=== PATIENT | male | born 1950 | race Caucasian/White ===

== ENCOUNTER 2023-12-29 12:51 | Outpatient (CLI) | payer MEDICARE, OTHER, SELFPAY ==
--- NOTE | ~2023-12-29 | MMUS_ITS ---
EXAMINATION: MM diagnostic ame RT w angel, US breast RT limited HISTORY: Right breast pain TECHNIQUE: Additional 3-D tomosynthesis images of ] were performed and synthetic 2-D images were gene rated. Comparison left MLO view performed. CAD analysis was submitted and interpreted. High resolutio n Limited right breast ultrasound was performed. COMPARISON: None BREAST PARENCHYMAL COMPOSITION: Not dense: There are scattered areas of fibroglandular density. FINDINGS: MAMMOGRAPHIC FINDINGS: There is bilateral asymmetric gynecomastia, right greater than left. No suspicious masses, calcificat ions or architectural distortion are identified. ULTRASOUND: Limited right breast ultrasound: There is normal heterogeneous subareolar soft tissue of the right br east, consistent with gynecomastia. No suspicious masses to suggest malignancy. IMPRESSION: 1. No evidence for malignancy. Bilateral asymmetric gynecomastia. 2. Recommend follow-up clinical management for gynecomastia. BI-RADS CATEGORY 2 - BENIGN FINDINGS Reviewed, dictated and finalized at location A. [facility] DIRECTOR IMPRESSION: 1. No evidence for malignancy. Bilateral asymmetric gynecomastia. 2. Recommend follow-up clinical management for gynecomastia. BI-RADS CATEGORY 2 - BENIGN FINDINGS
== END 2023-12-29 12:52 | disposition home or self-care (01) ==
LOC: ANHIMG 12:56
PROVIDERS: PCP Family Medicine; Visit Provider Family Medicine
DX: N64.4 Mastodynia (principal)
CPT/HCPCS: 76642; 77061; 77065; G0279